=== PATIENT | female | born 1990 | race Caucasian/White ===

== ENCOUNTER 2018-07-02 15:13 | Emergency (ER) | payer SELFPAY ==
[~2018-07-02] VITALS: Ht 165.1 cm; Wt 100.0 kg
[2018-07-02 15:23] VITALS: BP 156/85
[2018-07-02] MEDS ORDERED: ketorolac trometh inj. 60 MG/2 ML VIAL IM ONE (16:00)
[2018-07-02] MEDS ORDERED: TRAM50TA2 PO (16:23)
== END 2018-07-02 16:32 | disposition home or self-care (01) ==
LOC: ER 15:17
DX: M25.551 Pain in right hip (principal); G89.29 Other chronic pain; Z87.81 Personal history of (healed) traumatic fracture; Z98.890 Other specified postprocedural states; Z88.8 Allergy status to other drugs, medicaments and biological substances
CPT/HCPCS: 96372; 99283; J1885

== ENCOUNTER 2019-08-10 18:50 | Emergency (ER) | payer MEDICAID ==
[~2019-08-10] VITALS: Ht 165.1 cm; Wt 109.1 kg
[2019-08-10] MEDS ORDERED: HYDR-4383 PO (21:05)
[2019-08-10] MEDS ORDERED: ONDA4TAB6 PO (21:05)
[2019-08-10] MEDS ORDERED: ondansetron 4mg rapidly disintigrating tab PO ONE (21:15)
[2019-08-10] MEDS ORDERED: HYDROcodone/acetaminophen 5mg/325mg tablet PO ONE (21:15)
[2019-08-10 21:39] VITALS: BP 136/87
== END 2019-08-10 21:35 | disposition home or self-care (01) ==
LOC: ER 18:50
DX: M54.5 Low back pain (principal); G89.29 Other chronic pain; F12.90 Cannabis use, unspecified, uncomplicated; Z98.890 Other specified postprocedural states; Z88.8 Allergy status to other drugs, medicaments and biological substances
CPT/HCPCS: 99284

== ENCOUNTER 2022-05-13 08:20 | Emergency (ER) | payer MEDICAID ==
[~2022-05-13] VITALS: Ht 165.1 cm; Wt 102.2 kg
[~2022-05-13 08:20] MED LIST: HYDR-4383 PO; ONDA4TAB6 PO
[2022-05-13 08:31] VITALS: BP 148/96
== END 2022-05-13 16:00 | disposition left against medical advice (07) ==
LOC: ER 08:21
DX: M54.89 Other dorsalgia (principal); Z53.21 Procedure and treatment not carried out due to patient leaving prior to being seen by health care provider

== ENCOUNTER 2023-10-10 20:40 | Emergency (ER) | payer MEDICAID ==
[~2023-10-10] VITALS: Ht 165.1 cm; Wt 101.6 kg
[2023-10-10 20:46] VITALS: TEMP 98.5
[2023-10-10 21:12] LABS: BASOPHILS # (AUTO) 0.1 X10'3 (0-0.2); BASOPHILS % (AUTO) 0.8 % (0-1); EOSINOPHILS # (AUTO) 0.4 X10'3 (0-0.9); EOSINOPHILS % (AUTO) 3.5 % (0-6); HEMATOCRIT 40.5 % (35.0-45.0); HEMOGLOBIN 14.1 g/dl (12.0-16.0); LYMPHOCYTES # (AUTO) 3.2 X10'3 (1.1-4.8); LYMPHOCYTES % (AUTO) 31.9 % (21-51); MEAN CORPUSCULAR HGB CONC 34.8 g/dL (33.0-36.5); MEAN CORPUSCULAR VOLUME 86.2 FL (78-98); MEAN PLATELET VOLUME 8.9 FL (7.4-10.4); MONOCYTES # (AUTO) 0.6 X10'3 (0-0.9); MONOCYTES % (AUTO) 6.4 % (2-12); NEUTROPHILS # (AUTO) 5.8 X10'3 (1.8-7.7); NEUTROPHILS % (AUTO) 57.4 % (42-75); PLATELET COUNT 255 X10'3 (140-440); RED CELL DISTRIBUTION WIDTH 14.9 % (11.5-14.5); WHITE BLOOD COUNT 10.2 X10'3 (4.5-11.0)
[2023-10-10 21:34] LABS: URINE HCG NEGATIVE (NEG)
[2023-10-10 21:36] LABS: BILIRUBIN,URINE NEGATIVE (Neg); CLARITY,URINE CLEAR (Clear); COLOR,URINE STRAW (Yellow); GLUCOSE, URINE >=1000 mg/dl (Neg); KETONES,URINE NEGATIVE (Neg); LEUKOCYTE ESTERASE ,URINE NEGATIVE (Neg); NITRITES, URINE NEGATIVE (Neg); OCCULT BLOOD,URINE TRACE-INTACT (Neg); PROTEIN,URINE NEGATIVE (Neg); UROBILINOGEN,URINE 0.2 E.U/dL (0.2-1.0)
[2023-10-10 21:38] LABS: ALBUMIN 3.4 G/DL (3.4-5.0); ALKALINE PHOSPHATASE 75 IU/L (46-116); BILIRUBIN,TOTAL 0.5 MG/DL (0.1-1.0); BLOOD UREA NITROGEN 11 MG/DL (7-18); BUN/CREATININE RATIO 11.1 (10.0-20.0); CALCIUM 8.4 MG/DL (8.5-10.1); CHLORIDE 103 MMOL/L (99-107); CREATININE 0.99 MG/DL (0.40-0.90); LIPASE 52 U/L (16-77); TOTAL CARBON DIOXIDE 22.2 MMOL/L (24-32); eCRCL 74 ML/MIN; eGFR 65 ML/MIN
[2023-10-10 21:39] LABS: UA COLLECTION TYPE CLN CATCH MIDSTREAM
[2023-10-10 21:42] LABS: MUCUS STRANDS NONE SEEN /LPF (Neg); SQUAMOUS EPITHELIAL CELL,UR FEW /LPF (FEW)
[2023-10-10 21:44] LABS: BACTERIA,URINE NONE SEEN /HPF (Neg); RBC,URINE 0-2 /HPF (0-2); WBC,URINE NONE SEEN /HPF (0-4)
[2023-10-10 22:26] LABS: ALANINE AMINOTRANSFERASE 34 U/L (12-78); ALBUMIN/GLOBULIN RATIO 0.9 (1.1-1.5); ANION GAP 12 (8-16); ASPARTATE AMINO TRANSFERASE 18 U/L (10-37); POTASSIUM 4.1 MMOL/L (3.5-5.1); SODIUM 137 MMOL/L (135-145); TOTAL PROTEIN 7.2 G/DL (6.4-8.2)
[2023-10-10 22:30] LABS: GLUCOSE 406 MG/DL (70-104)
[2023-10-10] MEDS: acetaminophen 325mg tablet PO ONE (23:53)
[2023-10-10] MEDS: ondansetron 4mg rapidly disintigrating tab PO ONE (23:53)
[2023-10-11] MEDS ORDERED: ONDA4TAB12 PO (00:40)
[2023-10-11] MEDS: ondansetron 4mg rapidly disintigrating tab PO ONE (00:43)
[2023-10-11 01:20] VITALS: BP 127/98; PULSE 95; RESP 14; O2SAT 98
== END 2023-10-11 01:22 | disposition home or self-care (01) ==
LOC: ER 20:41
DX: B34.9 Viral infection, unspecified (principal); Z20.822 Contact with and (suspected) exposure to COVID-19; F12.10 Cannabis abuse, uncomplicated; G89.29 Other chronic pain; Z88.5 Allergy status to narcotic agent; Z79.899 Other long term (current) drug therapy
CPT/HCPCS: 36415; 71045; 80053; 81001; 81025; 82948; 83690; 85025; 87811; 99284

== ENCOUNTER 2024-02-01 08:16 | Emergency (ER) | payer MEDICAID ==
[~2024-02-01] VITALS: Ht 165.1 cm; Wt 84.6 kg
[~2024-02-01 08:16] MED LIST changes: +ONDA-243 PO
[2024-02-01 09:36] VITALS: TEMP 98.4
[2024-02-01 10:08] LABS: BASOPHILS # (AUTO) 0.1 X10'3 (0-0.2); BASOPHILS % (AUTO) 0.4 % (0-1); EOSINOPHILS # (AUTO) 0.3 X10'3 (0-0.9); EOSINOPHILS % (AUTO) 2.2 % (0-6); HEMATOCRIT 42.8 % (35.0-45.0); HEMOGLOBIN 14.1 g/dl (12.0-16.0); LYMPHOCYTES # (AUTO) 3.5 X10'3 (1.1-4.8); LYMPHOCYTES % (AUTO) 26.9 % (21-51); MEAN CORPUSCULAR HEMOGLOBIN 28.8 PG (27.0-31.0); MEAN CORPUSCULAR VOLUME 87.4 FL (78-98); MEAN PLATELET VOLUME 9.2 FL (7.4-10.4); MONOCYTES # (AUTO) 0.8 X10'3 (0-0.9); MONOCYTES % (AUTO) 6.3 % (2-12); NEUTROPHILS # (AUTO) 8.3 X10'3 (1.8-7.7); NEUTROPHILS % (AUTO) 64.2 % (42-75); PLATELET COUNT 251 X10'3 (140-440); RED CELL DISTRIBUTION WIDTH 14.4 % (11.5-14.5); WHITE BLOOD COUNT 12.9 X10'3 (4.5-11.0)
[2024-02-01 10:15] LABS: ALBUMIN 3.5 G/DL (3.4-5.0); ANION GAP 10 (8-16); BLOOD UREA NITROGEN 9 MG/DL (7-18); BUN/CREATININE RATIO 11.7 (10.0-20.0); CALCIUM 9.3 MG/DL (8.5-10.1); CHLORIDE 100 MMOL/L (99-107); CREATININE 0.77 MG/DL (0.40-0.90); GLUCOSE 218 MG/DL (70-104); POTASSIUM 3.7 MMOL/L (3.5-5.1); SODIUM 136 MMOL/L (135-145); TOTAL CARBON DIOXIDE 25.9 MMOL/L (24-32); eCRCL 95 ML/MIN; eGFR 87 ML/MIN
[2024-02-01] MEDS ORDERED: SULF1TAB45 PO (10:15)
[2024-02-01] MEDS ORDERED: BUDE10.2 (10:15)
[2024-02-01] MEDS ORDERED: ALBUTEROL (10:15)
[2024-02-01] MEDS: ibuprofen 200mg tablet PO ONE (10:30)
[2024-02-01] MEDS: HYDROcodone/acetaminophen 5mg/325mg tablet PO ONE ×2 (10:31→12:49)
[2024-02-01] MEDS: clindamycin 150mg capsule PO ONE (10:31)
[2024-02-01] MEDS: BUPIVAcaine 0.25% w/Epi /PF 30ml vial SQ ONE (10:33)
[2024-02-01 10:41] LABS: TOTAL CELLS COUNTED 100
[2024-02-01 10:42] LABS: PLATELET ESTIMATE NORMAL
[2024-02-01 10:47] LABS: URINE AMPHETAMINE SCREEN POSITIVE (Neg); URINE BARBITUATE SCREEN NEGATIVE (Neg); URINE BENZODIAZEPINES SCREEN NEGATIVE (Neg); URINE CANNABINOID SCREEN NEGATIVE (Neg); URINE COCAINE SCREEN NEGATIVE (Neg); URINE METHADONE SCREEN NEGATIVE (Neg); URINE OPIATE SCREEN POSITIVE (Neg); URINE PHENCYCLIDINE SCREEN NEGATIVE (Neg)
[2024-02-01] MEDS ORDERED: CLIN-214 PO (12:07)
[2024-02-01] MEDS ORDERED: METF750T46 PO (12:07)
[2024-02-01] MEDS ORDERED: IBUP-1985 PO (12:07)
[2024-02-01 12:47] VITALS: BP 126/92; PULSE 89; O2SAT 96
[2024-02-01] MEDS: metFORMIN 500mg tablet PO ONE (12:47)
[2024-02-01 12:49] VITALS: RESP 16
== END 2024-02-01 13:03 | disposition home or self-care (01) ==
LOC: ER 08:17
DX: L02.01 Cutaneous abscess of face (principal); L02.411 Cutaneous abscess of right axilla; L02.215 Cutaneous abscess of perineum; F12.90 Cannabis use, unspecified, uncomplicated; E11.65 Type 2 diabetes mellitus with hyperglycemia; F15.10 Other stimulant abuse, uncomplicated; Z88.8 Allergy status to other drugs, medicaments and biological substances; Z79.1 Long term (current) use of non-steroidal anti-inflammatories (NSAID); Z79.2 Long term (current) use of antibiotics; Z79.899 Other long term (current) drug therapy
CPT/HCPCS: 10060; 80048; 80305; 85007; 85025; 99284; A6222; A6407; A6258; A6449